=== PATIENT | female | born 1990 | race Caucasian/White ===

== ENCOUNTER 2017-02-22 20:44 | Emergency (ER) | payer BC ==
--- NOTE | 2017-02-22 21:44 | PD ---
HPI Chief Complaint Cramping Date Seen: Feb 22, 2017 Time Seen: 21:30 Travel History International Travel<30 Days: No Contact w/Intl Traveler<30Days: No Known Affected Area: No History of Present Illness HPI 27-year-old 1 para 0 at 31 6/7 weeks gestation who has been having cramping since about 5:30 PM. She states the cramping is now diminished. No leakage of fluid or bleeding. She reports good movement History Past Medical History Medical History: Denies Significant Hx Obstetric History Obstetric History Primigravida under the care of Dr. Thomson, uncomplicated thus far Family History Family History: Negative Social History Alcohol Use: No Tobacco Use: No Substance Abuse: No Review of Systems Except as stated in HPI: all other systems reviewed are Neg Physical Exam Narrative GENERAL: Well-nourished, well-developed patient. SKIN: Warm and dry. HEAD: Normocephalic and atraumatic. EYES: No scleral icterus. No injection or drainage. ENT: No nasal drainage noted. Mucous membranes pink. Airway patent. NECK: Supple, trachea midline. No JVD. CARDIOVASCULAR: Regular rate and rhythm without murmurs, gallops, or rubs. RESPIRATORY: Breath sounds equal bilaterally. No accessory muscle use. ABDOMEN/GI: Abdomen soft, non-tender, bowel sounds present, no rebound, no guarding Gravid to [-] weeks size Fundal Height: [-] GENITOURINARY: External Genitalia: intact and normal in appearance BUS glands: [-] Cervix: [-] Dilatation: [Closed-] Effacement: [50] Station: [-3-] Presentation: [-] Membranes: [intact ] Uterine Contractions: [-Irritable] FHT's: Category: [-1] Baseline: [-] Reactive: [Yes-] Variability: [-] Decels: [-] EXTREMITIES: No cyanosis or edema. BACK: Nontender without obvious deformity. No CVA tenderness. NEUROLOGICAL: Awake and alert. Motor and sensory grossly within normal limits. Five out of 5 muscle strength in all muscle groups. Normal speech. MDM Medical Record Reviewed: Yes Narrative Course / MDM Assessment: 31 6/7 week gestation with uterine irritability now resolved spontaneously Plan: Labor precautions were reviewed with the patient. She was encouraged to attend her follow-up OB appointment on Wednesday. She will return if things worsen. Diagnosis Diagnosis: Primary Impression: 31 weeks gestation of Additional Impression: Michael Stubbs' contraction Disposition: 01 DISCHARGE HOME Condition: Good Von Domínguez MD Feb 22, 2017 21:44
== END 2017-02-23 03:25 | disposition home or self-care (01) ==
LOC: HOBED 20:44
DX: O47.03 False labor before 37 completed weeks of gestation, third trimester (principal); Z3A.31 31 weeks gestation of pregnancy
CPT/HCPCS: 82731; 99284

== ENCOUNTER 2017-04-22 16:01 | Emergency (ER) | payer BC ==
--- NOTE | 2017-04-22 16:26 | PD ---
HPI Chief Complaint ctx Date Seen: Apr 22, 2017 Time Seen: 16:22 Travel History International Travel<30 Days: No Contact w/Intl Traveler<30Days: No Known Affected Area: No History of Present Illness HPI Pt is a 27y/o G1 @ 40.2wks. She has PNC with Dr. Thomson. She reports that she saw him today in clinic and she was 1cm and he stripped her membranes. She took a walk and started spotting/cramping so she presented for evaluation. She denies LOF but reports her mucus plug came out. +FM. Weeks Gestation: 40 Para: 0 : 1 History Past Medical History Medical History: Denies Significant Hx Obstetric History Obstetric History 1. current Past Surgical History Narrative Surgical wisdom teeth extraction Family History Family History: Negative Social History Alcohol Use: No Tobacco Use: No Substance Abuse: No Review of Systems Except as stated in HPI: all other systems reviewed are Neg Physical Exam Narrative General: well developed, well nourished, no acute distress HEENT: normocephalic atraumatic, extraocular movements intact, neck supple Abdomen: soft, gravid, nontender, nondistended Uterus: fundus term Extremities: full range of motion Skin: normal coloration, no rashes, no suspicious skin lesions noted Neurologic: cranial nerves 2-12 grossly intact, normal muscle tone, normal gait Psychiatric: normal mood and affect, appropriate FHTs: 135, +accels, no decels, moderate variability, reactive [place]: irritable Cvx: 1/60/-3 Data Data Vital Signs Reviewed: Yes Orders Orders Vital Signs (Adult) .ON ADMISSION (04/22/17 16:20) ^ Labor Status (04/22/17 16:20) ^ Non Stress Test (04/22/17 16:20) Ed Discharge Order (04/22/17 16:21) MDM Plan Pt is a 27y/o G1 @ 40.2wks with cramping/spotting. -- membranes stripped today in clinic -- cvx unchanged, bloody show present -- FHTs cat 1 Dispo: stable for d/c home with precautions Diagnosis Diagnosis: Primary Impression: 40 weeks gestation of Additional Impressions: Post-dates Cramping affecting , antepartum Vi Ferraro MD Apr 22, 2017 16:26
[2017-04-22 16:30] VITALS: RESP 18
[2017-04-23] MEDS ORDERED: PRENTAB7 (09:03)
[2017-04-23] MEDS ORDERED: ACYC200C66 PO (09:03)
== END 2017-04-22 16:42 | disposition home or self-care (01) ==
LOC: HOBED 16:01
DX: O26.893 Other specified pregnancy related conditions, third trimester (principal); R10.9 Unspecified abdominal pain; O48.0 Post-term pregnancy; Z3A.40 40 weeks gestation of pregnancy
CPT/HCPCS: 59025

== ENCOUNTER 2017-04-23 02:51 | Emergency (ER) | payer BC, MEDICAID ==
--- NOTE | 2017-04-23 03:36 | PD ---
HPI Chief Complaint ctx Date Seen: Apr 23, 2017 Time Seen: 03:32 Travel History International Travel<30 Days: No Contact w/Intl Traveler<30Days: No Known Affected Area: No History of Present Illness HPI Pt is a 27y/o G1 @ 40.3wks. She has PNC with Dr. Thomson. She was seen yesterday in triage for spotting and ctx following membrane stripping in the office. She returns with worsening ctx since 11pm. No LOF. +FM. Weeks Gestation: 40 Para: 0 : 1 Last Menstrual Period: Apr 23, 2017 History Past Medical History Medical History: Denies Significant Hx Obstetric History Obstetric History 1. current Past Surgical History Narrative Surgical wisdom teeth extraction Family History Family History: Negative Social History Alcohol Use: No Tobacco Use: No Substance Abuse: No Allergies-Medications (Allergen,Severity, Reaction): Coded Allergies: No Known Allergies (Unverified , 04/22/17) Review of Systems Except as stated in HPI: all other systems reviewed are Neg Physical Exam Narrative General: well developed, well nourished, no acute distress HEENT: normocephalic atraumatic, extraocular movements intact, neck supple Abdomen: soft, gravid, nontender, nondistended Uterus: fundus term Extremities: full range of motion Skin: normal coloration, no rashes, no suspicious skin lesions noted Neurologic: cranial nerves 2-12 grossly intact, normal muscle tone, normal gait Psychiatric: normal mood and affect, appropriate FHTs: 135, +accels, no decels, moderate variability, reactive [place]: irregular ctx and irritability Cvx: 1/80/-2 (unchanged) Data Data Vital Signs Reviewed: Yes Orders Orders Vital Signs (Adult) .ON ADMISSION (04/23/17 03:29) ^ Labor Status (04/23/17 03:29) ^ Non Stress Test (04/23/17 03:29) Group B Strep: Positive MDM Plan 27y/o G1 @ 40.3wks with ctx -- cvx 1/80/-2 (unchanged from office and triage visit yesterday) -- FHTs cat 1 -- recheck in 1hr -- GBS positive Dispo: cvx unchanged after 1hr; d/c home with precautions Diagnosis Diagnosis: Primary Impression: 40 weeks gestation of Additional Impressions: Uterine contractions during GBS (group B Streptococcus carrier), +RV culture, currently Vi Ferraro MD Apr 23, 2017 03:36
[2017-04-23 04:45] VITALS: RESP 20
[2017-04-23] MEDS ORDERED: PRENTAB7 (09:03)
[2017-04-23] MEDS ORDERED: ACYC200C66 PO (09:03)
== END 2017-04-23 05:59 | disposition home or self-care (01) ==
LOC: HOBED 03:05
DX: O26.893 Other specified pregnancy related conditions, third trimester (principal); N85.8 Other specified noninflammatory disorders of uterus; Z22.330 Carrier of Group B streptococcus; Z3A.40 40 weeks gestation of pregnancy
CPT/HCPCS: 59025

== ENCOUNTER 2017-04-23 08:37 | Inpatient (IN) | payer BC, MEDICAID ==
[~2017-04-23] VITALS: Ht 175.3 cm; Wt 83.9 kg
[2017-04-23] VITALS (60 sets, daily range): BP systolic 90–150; BP diastolic 45–135; PULSE 71–141; RESP 16–20; TEMP 98.9–100
[2017-04-23] MEDS ORDERED: PRENTAB7 (09:03)
[2017-04-23] MEDS ORDERED: ACYC200C66 PO (09:03)
--- NOTE | 2017-04-23 09:13 | PD ---
HPI Chief Complaint contractions Date Seen: Apr 23, 2017 Time Seen: 09:08 Travel History International Travel<30 Days: No Contact w/Intl Traveler<30Days: No History of Present Illness HPI Patient is a 27 year old at 40 and 3/7 weeks gestation who presents to the OB ED with contractions. She presented 04/21, 04/22, and this morning for similar symptoms, not in labor at those time. She denies leakage of fluid, vaginal bleeding. She feels baby moving regularly. She denies WYNN/N/V/D/fever/ sick contacts/SOB/calf pain/dizziness/seeing spots. OB care is with Dr. Thomson. 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 Denies medical problems, PSH wisdom teeth extraction. Denies alcohol, tobacco, illicit drug use. Took Tylenol, Benadryl this morning around 530am, didn't help. Allergies-Medications (Allergen,Severity, Reaction): Coded Allergies: No Known Allergies (Unverified , 04/22/17) Home Meds Reported Medications Pnv No.95/Ferrous Fum/Folic AC ( Vitamins Tablet) 28 Mg Iron-800 Mcg Tablet 04/23/17 Acyclovir (Acyclovir) 200 Mg Cap, 200 MG PO 5 TIMES A DAY for Mgmt Viral Infection, CAP 0 Refills 04/23/17 Review of Systems Except as stated in HPI: all other systems reviewed are Neg Physical Exam Narrative GENERAL: Well-nourished, well-developed patient. SKIN: Warm and dry. No rashes. HEAD: Normocephalic and atraumatic. EYES: No scleral icterus. No injection or drainage. ENT: No nasal drainage noted. Mucous membranes pink. Airway patent. NECK: Supple, trachea midline. No JVD. CARDIOVASCULAR: Regular rate and rhythm without murmurs, gallops, or rubs. RESPIRATORY: Breath sounds equal bilaterally. No accessory muscle use. ABDOMEN/GI: Abdomen soft, non-tender, bowel sounds present, no rebound, no guarding. Gravid. GENITOURINARY: External Genitalia: intact and normal in appearance Cervix: 2/75/-3 Presentation: Vertex Membranes: intact Uterine Contractions: q 4 min FHT's: Category: 1 Baseline: 140s Reactive: 160s Variability: mod Decels: absent EXTREMITIES: No cyanosis or edema. BACK: Nontender without obvious deformity. No CVA tenderness. NEUROLOGICAL: Awake and alert. Motor and sensory grossly within normal limits. Five out of 5 muscle strength in all muscle groups. Normal speech. Data Data Vital Signs Reviewed: Yes (BP wnl 130s/60s) Orders Orders Vital Signs (Adult) .ON ADMISSION (04/23/17 08:45) ^ Labor Status (04/23/17 08:45) ^ Non Stress Test (04/23/17 08:45) MDM Medical Record Reviewed: Yes Plan 27 year old at 40 and 3/7 weeks gestation who presents to the OB ED with contractions. OB care with Dr. Thomson. Cervix 2/75/-3 on exam. CTX q4min. Intrauterine : Category 1 tracing CTX moderate to palpation q4min, painful Expect vaginal delivery Intact membranes Monitor heart tones Routine care Monitor CTX, recheck cervix to assess if in labor Consult with Dr. Thomson for further management planning GBS positive: Start IV penicillin per protocol once in labor DW Dr. Ferraro WDW Dr. Thomson Disposition: 01 DISCHARGE HOME Patient Instructions: Having Your Baby: The Labor Process (GEN) Juliana Jarquin MD R2 Apr 23, 2017 09:13
[2017-04-23] MEDS ORDERED: LACTATED RINGER'S 1000 ML INJ 1,000 ML IV PRN (11:07)
--- NOTE | 2017-04-23 11:12 | HHI.HP ---
HPI Chief Complaint Contractions Date Seen: Apr 23, 2017 Time Seen: 11:10 Travel History International Travel<30 Days: No Contact w/Intl Traveler<30Days: No History of Present Illness HPI Patient is a 27 year old at 40 and 3/7 weeks gestation who presents to the OB ED with contractions. She presented 04/21, 04/22, and this morning for similar symptoms, not in labor at those time. She denies leakage of fluid, vaginal bleeding. She feels baby moving regularly. She denies [place]/N/V/D/fever/ sick contacts/SOB/calf pain/dizziness/seeing spots. OB care is with Dr. Thomson. 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 Denies medical problems, PSH wisdom teeth extraction. Denies alcohol, tobacco, illicit drug use. Took Tylenol, Benadryl this morning around 530am, didn't help. Allergies-Medications (Allergen,Severity, Reaction): Coded Allergies: No Known Allergies (Unverified , 04/22/17) Home Meds Reported Medications Pnv No.95/Ferrous Fum/Folic AC ( Vitamins Tablet) 28 Mg Iron-800 Mcg Tablet 04/23/17 Acyclovir (Acyclovir) 200 Mg Cap, 200 MG PO 5 TIMES A DAY for Mgmt Viral Infection, CAP 0 Refills 04/23/17 Physical Exam Vital Signs Date Time Temp Pulse Resp B/P (MAP) Pulse Ox O2 Delivery O2 Flow Rate FiO2 04/23/17 08:52 83 134/68 (90) Narrative GENERAL: Well-nourished, well-developed patient. SKIN: Warm and dry. No rashes. HEAD: Normocephalic and atraumatic. EYES: No scleral icterus. No injection or drainage. ENT: No nasal drainage noted. Mucous membranes pink. Airway patent. NECK: Supple, trachea midline. No JVD. CARDIOVASCULAR: Regular rate and rhythm without murmurs, gallops, or rubs. RESPIRATORY: Breath sounds equal bilaterally. No accessory muscle use. ABDOMEN/GI: Abdomen soft, non-tender, bowel sounds present, no rebound, no guarding. Gravid. GENITOURINARY: External Genitalia: intact and normal in appearance Cervix: 3/80/-2 Presentation: Vertex Membranes: intact Uterine Contractions: q 4 min FHT's: Category: 1 Baseline: 140s Reactive: 160s Variability: mod Decels: absent EXTREMITIES: No cyanosis or edema. BACK: Nontender without obvious deformity. No CVA tenderness. NEUROLOGICAL: Awake and alert. Motor and sensory grossly within normal limits. Five out of 5 muscle strength in all muscle groups. Normal speech. Caprini VTE Risk Assessment Caprini VTE Risk Assessment: No/Low Risk (score <= 1) Caprini Risk Assessment Model Point Value = 1 Point Value = 2 Point Value = 3 Point Value = 5 Age 41-60 Minor surgery BMI > 25 kg/m2 Swollen legs Varicose veins or History of unexplained or recurrent spontaneous Oral contraceptives or hormone replacement Sepsis (< 1 month) Serious lung disease, including pneumonia (< 1 month) Abnormal pulmonary function Acute myocardial infarction Congestive heart failure (< 1 month) History of inflammatory bowel disease Medical patient at bed rest Age 61-74 Arthroscopic surgery Major open surgery (> 45 min) Laparoscopic surgery (> 45 min) Malignancy Confined to bed (> 72 hours) Immobilizing plaster cast Central venous access Age >= 75 History of VTE Family history of VTE Factor V Leiden Prothrombin [id number] Lupus anticoagulant Anticardiolipin antibodies Elevated serum homocysteine Heparin-induced thrombocytopenia Other congenital or acquired thrombophilia Stroke (< 1 month) Elective arthroplasty Hip, pelvis, or leg fracture Acute spinal cord injury (< 1 month) Prophylaxis Regimen Total Risk Factor Score Risk Level Prophylaxis Regimen 0-1 Low Early ambulation 2 Moderate Order ONE of the following: *Sequential Compression Device (SCD) *Heparin 5000 units SQ BID 3-4 Higher Order ONE of the following medications: *Heparin 5000 units SQ TID *Enoxaparin/Lovenox 40 mg SQ daily (WT < 150 kg, CrCl > 30 mL/min) *Enoxaparin/Lovenox 30 mg SQ daily (WT < 150 kg, CrCl > 10-29 mL/min) *Enoxaparin/Lovenox 30 mg SQ BID (WT < 150 kg, CrCl > 30 mL/min) AND/OR *Sequential Compression Device (SCD) 5 or more Highest Order ONE of the following medications: *Heparin 5000 units SQ TID (Preferred with Epidurals) *Enoxaparin/Lovenox 40 mg SQ daily (WT < 150 kg, CrCl > 30 mL/min) *Enoxaparin/Lovenox 30 mg SQ daily (WT < 150 kg, CrCl > 10-29 mL/min) *Enoxaparin/Lovenox 30 mg SQ BID (WT < 150 kg, CrCl > 30 mL/min) AND *Sequential Compression Device (SCD) Data Data Vital Signs Reviewed: Yes (wnl) Orders Orders Vital Signs (Adult) .ON ADMISSION (04/23/17 08:45) ^ Labor Status (04/23/17 08:45) ^ Non Stress Test (04/23/17 08:45) Us Ob Bpp Wo Nst (04/23/17 ) Admit To Inpatient (04/23/17 ) Code Status (04/23/17 11:07) Vital Signs (Adult) .Per protocol (04/23/17 11:07) Activity Oob Ad [place] (04/23/17 11:07) Heart (04/23/17 11:07) Amnioinfusion (04/23/17 11:07) Urinary Catheter Management .ONCE (04/23/17 11:07) Diet Npo (04/23/17 Lunch) Lactated Ringer's 1000 Ml Inj (Lr 1000 M (04/23/17 11:07) Lactated Ringer's 1000 Ml Inj (Lr 1000 M (04/23/17 11:07) Sodium Chlorid 0.9% 500 Ml Inj (Ns 500 M (04/23/17 11:15) Sodium Chlor 0.9% 1000 Ml Inj (Ns 1000 M (04/23/17 11:27) Lidocaine 1% Inj (50 Ml) (Xylocaine 1% I (04/23/17 11:15) Citric Acid-Sodium Citrate Liq (Bicitra (04/23/17 11:15) Fentanyl Inj (Fentanyl Inj) (04/23/17 11:15) Fentanyl Inj (Fentanyl Inj) (04/23/17 11:15) Penicillin G Potassium Inj (Pfizerpen-G (04/23/17 11:15) Penicillin G Potassium Inj (Pfizerpen-G (04/23/17 15:15) Complete Blood Count With Diff (04/23/17 11:07) Hold Clot (04/23/17 11:07) Abo/Rh Blood Type (04/23/17 11:07) Urinalysis - C+S If Indicated (04/23/17 11:07) Drug Screen, Random Urine (04/23/17 11:07) Resp Oxygen Non Rebreathe Mask (04/23/17 ) ^ Epidural / Intrathecal Infus (04/23/17 11:07) Oxytocin 30 Units-500ml Premix (Pitocin (04/23/17 11:15) Lidocaine 1% Inj (50 Ml) (Xylocaine 1% I (04/23/17 11:15) Light Mineral Oil (Muri-Lube Oil) (04/23/17 11:15) Inpatient Certification (04/23/17 ) Assessment/Plan Assessment and Plan 27 year old at 40 and 3/7 weeks gestation who presents to the OB ED with contractions. OB care with Dr. Thomson. Cervix 75/-3 on exam 845am, repeat exam /-2. CTX q4min. Will admit for labor. Intrauterine : Category 1 tracing CTX moderate to palpation q4min, painful Expect vaginal delivery Intact membranes Monitor heart tones Routine care Dr. Thomson aware CTX: BPP ordered for postdates: not completed for full 30 min due to painful ctx, but AMOL 7.6, EFW 3354g, BPP 6/8 but breathing not assessed GBS positive: Start IV penicillin per protocol once in labor DW Dr. Ferraro, Dr. Naz Garcia SDW Dr. Thomson who agrees with admission Juliana Jarquin MD R2 Apr 23, 2017 11:12
[2017-04-23] MEDS ORDERED: LIDOCAINE HCL 1% 50 ML VIAL INFIL PRN (11:15)
[2017-04-23] MEDS ORDERED: OXYTOCIN 30 UNITS-500ML PREMIX 500 ML IV ONE (11:15)
[2017-04-23] MEDS ORDERED: SODIUM CHLORID 0.9% 500 ML INJ 500 ML IV PRN (11:15)
[2017-04-23] MEDS ORDERED: PENICILLIN G POTASSIUM INJ 5,000,000 UNITS in SODIUM CHLORIDE 0.9% INJ 100 ML IV ONE (11:15)
[2017-04-23] MEDS ORDERED: MINERAL OIL 10 ML VIAL TOPICAL PRN (11:15)
[2017-04-23] MEDS ORDERED: CITRIC ACID-SODIUM CITRATE LIQ 30 ML UDC PO SCH (11:15)
[2017-04-23] MEDS ORDERED: LIDOCAINE HCL 1% 50 ML VIAL I-DERMAL PRN (11:15)
[2017-04-23] MEDS ORDERED: SODIUM CHLOR 0.9% 1000 ML INJ 1,000 ML IV PRN (11:27)
[2017-04-23] MEDS: LACTATED RINGER'S 1000 ML INJ 1,000 ML IV SCH ×2 (11:42→19:50)
[2017-04-23 11:58] LABS: BACTERIA, URINE OCC /hpf; BLOOD, URINE LARGE (NEG); COMMENT (UR) CULT NOT INDICATED; CULTURE IF INDICATED CULT NOT INDICATED; GLUCOSE,URINE NEG (NEG); KETONE, URINE 40 mg/dL (NEG); MUCUS URINE FEW /lpf (OCC); NITRITE,URINE NEG (NEG); SQUAMOUS EPITHELIAL CELL URINE 3 /hpf (0-5); URINE COLOR YELLOW (YELLW/STRAW)
[2017-04-23 11:59] LABS: AUTOMATED NEUTROPHIL # 22.1 TH/MM3 (1.8-7.7); BASOPHIL % 0.2 % (0.0-2.0); EOSINOPHIL % 0.1 % (0.0-4.0); HEMATOCRIT 37.3 % (35.0-46.0); HEMO FLAGS DIFF FINAL; LYMPH % 3.9 % (9.0-44.0); LYMPHOCYTE # 0.9 TH/MM3 (1.0-4.8); MEAN CELL VOLUME 87.3 FL (80.0-100.0); MEAN CORPUSCULAR HEMOGLOBIN 29.6 PG (27.0-34.0); MEAN CORPUSCULAR HGB CONC 33.9 % (32.0-36.0); MONO % 3.6 % (0.0-8.0); NEUT % 92.2 % (16.0-70.0); PLATELET COUNT 274 TH/MM3 (150-450); RED BLOOD COUNT 4.28 MIL/MM3 (4.00-5.30); RED CELL DISTRIBUTION WIDTH 13.4 % (11.6-17.2); WHITE BLOOD COUNT 23.9 TH/MM3 (4.0-11.0)
[2017-04-23] MEDS ORDERED: fentaNYL 2MCG-BUPIV 0.125% INJ 100 ML ONE (14:51)
[2017-04-23] MEDS ORDERED: ePHEDrine/NS 25 MG/5 ML SYRINGE ONE (16:28)
[2017-04-23] MEDS ORDERED: fentaNYL 2MCG-BUPIV 0.125% 100 ML EPIDURAL SCH (17:45)
[2017-04-23] MEDS ORDERED: DO NOT ADMINISTER ANTICOAGULANTS PRN (17:45)
[2017-04-23] MEDS ORDERED: ePHEDrine/NS 25 MG/5 ML SYRINGE IV PUSH PRN (17:45)
[2017-04-23] MEDS ORDERED: NO SYSTEM NARCOTICS PRN (17:45)
[2017-04-23] MEDS ORDERED: OXYTOCIN 30 UNITS-500ML PREMIX 500 ML IV SCH (19:30)
[2017-04-23] MEDS: PENICILLIN G POTASSIUM INJ 2,500,000 UNITS in SODIUM CHLORIDE 0.9% INJ 100 ML IV SCH ×2 (19:47→20:00)
[2017-04-24] VITALS (11 sets, daily range): BP systolic 87–134; BP diastolic 54–75; PULSE 88–143; RESP 18–20; TEMP 98.5–99.6; O2SAT 96
--- NOTE | 2017-04-24 00:31 | PD.OB.DELI ---
Weeks gestation: 40 Gest age assessed date: Apr 24, 2017 Pt started active labor?: Yes Medical induction of labor?: No Artificial rupture of membrane: Yes Anesthesia: Epidural Episiotomy: None Vaginal Delivery: Normal Presentation: Occiput anterior Nuchal Cord: None Delayed cord clamping (45 sec): Yes Infant: Female Delivery date: Apr 24, 2017 Delivery time: 23:45 One Minute : 9 Five Minute : 9 Weight: 7/11 Placenta: Spontaneous delivery, Intact, 3 vessel cord Laceration: Vaginal laceration Repair: Vicryl interrupted Estimated blood loss: 350 Additional Information Nice delivery of Meera Left vaginal laceration repaired with 3-0 vicryl Also had suspicious mons mole 1.1cm removed and defect repaired with 3-0 proline She did very well. Mole to path with placenta placenta needed to go as mom had 100 temp before delivery and the baby felt warm. Peds notified. Sapna Thomson MD Apr 24, 2017 00:31
[2017-04-24] MEDS ORDERED: WITCH HAZEL 50%/GLYCERIN 12.5% 40 PAD JAR TOPICAL PRN ×2 (00:45→01:00)
[2017-04-24] MEDS ORDERED: BENZOCAINE 20% TOPICAL SPRAY 60 ML CAN TOPICAL PRN ×2 (00:45→01:00)
[2017-04-24] MEDS ORDERED: oxyCODONE/ACETAMINOPHEN 5 MG/325 MG TAB PO PRN ×3 (00:45→01:00)
[2017-04-24] MEDS ORDERED: SODIUM CHLORIDE 0.9% FLUSH 10 ML FLUSH IV FLUSH PRN (00:45)
[2017-04-24] MEDS ORDERED: ALUMINUM/MAGNESIUM/SIMETH 30 ML CUP PO PRN ×2 (00:45→01:00)
[2017-04-24] MEDS ORDERED: IBUPROFEN 800 MG TAB PO PRN (00:45)
[2017-04-24] MEDS ORDERED: OXYTOCIN 30 UNITS-500ML PREMIX 500 ML IV SCH ×2 (00:45→01:00)
[2017-04-24] MEDS ORDERED: OXYTOCIN 30 UNITS-500ML PREMIX 500 ML IV ONE (00:45)
[2017-04-24] MEDS ORDERED: ZOLPIDEM TARTRATE 5 MG TAB PO PRN ×2 (00:45→01:00)
[2017-04-24] MEDS ORDERED: DOCUSATE SODIUM 50 MG/SENNA 8.6 MG TAB PO PRN ×2 (00:45→01:00)
[2017-04-24] MEDS ORDERED: ONDANSETRON ODT 4 MG TAB PO PRN ×2 (00:45→01:00)
[2017-04-24] MEDS ORDERED: ACETAMINOPHEN 325 MG TAB PO PRN ×2 (00:45→01:00)
[2017-04-24] MEDS ORDERED: MEASLES, MUMPS, RUBELLA VACCINE 0.5 ML VIAL SQ ONE ×2 (01:00→16:00)
[2017-04-24] MEDS ORDERED: DIPHTH/TETANUS/ACEL PERTUSSIS (BOOSTER) 0.5 ML VIAL/PFS IM ONE ×2 (01:00→16:00)
[2017-04-24] MEDS ORDERED: oxyCODONE/ACETAMINOPHEN 5 MG/325 MG 2 TABS PO PRN (01:00)
[2017-04-24] MEDS ORDERED: DISCONTINUE ALL PREVIOUS ORDERS ONE (01:00)
[2017-04-24] MEDS ORDERED: ACYCLOVIR 200 MG CAP PO SCH (06:00)
[2017-04-24] MEDS ORDERED: SODIUM CHLORIDE 0.9% FLUSH 10 ML FLUSH IV FLUSH SCH (09:00)
[2017-04-24] MEDS: IBUPROFEN 600 MG TAB PO PRN ×2 (10:00→18:30)
--- NOTE | 2017-04-24 10:26 | HHI.OB ---
Subjective Post Day: 1 Objective Vitals/I&O Vital Signs Date Time Temp Pulse Resp B/P (MAP) Pulse Ox O2 Delivery O2 Flow Rate FiO2 04/24/17 08:00 98.7 103 18 119/67 (84) 04/24/17 02:08 98.7 110 18 111/63 (79) 96 04/24/17 01:15 20 04/24/17 01:13 99.6 04/24/17 01:10 110/54 (72) 04/24/17 01:10 125 04/24/17 01:02 87/69 (75) 04/24/17 01:02 125 04/24/17 01:00 20 04/24/17 00:45 120 04/24/17 00:45 108/71 (83) 04/24/17 00:15 125 04/24/17 00:01 134/75 (94) 04/24/17 00:01 143 04/23/17 23:33 18 04/23/17 23:30 141 126/81 (96) 04/23/17 23:07 18 04/23/17 23:00 129 128/71 (90) 04/23/17 23:00 100.0 04/23/17 22:40 20 04/23/17 22:31 125 115/52 (73) 04/23/17 22:30 99.7 04/23/17 22:08 18 04/23/17 22:00 111 135/74 (94) 04/23/17 21:31 20 04/23/17 21:30 124 110/79 (89) 04/23/17 21:30 98.9 04/23/17 21:17 20 04/23/17 21:00 128 142/78 (99) 04/23/17 21:00 20 04/23/17 20:30 124 119/72 (88) 04/23/17 20:15 18 04/23/17 20:00 123 120/76 (91) 04/23/17 20:00 18 04/23/17 19:47 18 04/23/17 19:30 118/65 (82) 04/23/17 19:30 93 04/23/17 19:30 98.9 04/23/17 19:15 103 04/23/17 19:15 111/61 (78) 04/23/17 19:13 18 04/23/17 19:00 112/67 (82) 04/23/17 18:45 90 110/64 (79) 04/23/17 18:37 20 04/23/17 18:30 106 129/81 (97) 04/23/17 18:15 129 111/71 (84) 04/23/17 18:01 97 108/59 (75) 04/23/17 17:45 103 110/54 (72) 04/23/17 17:30 97 116/55 (75) 04/23/17 17:27 20 04/23/17 17:15 121 127/63 (84) 04/23/17 17:00 82 118/64 (82) 04/23/17 16:45 104 120/71 (87) 04/23/17 16:36 20 04/23/17 16:35 88 108/45 (66) 04/23/17 16:35 104 04/23/17 16:30 87 116/59 (78) 04/23/17 16:30 75 04/23/17 16:26 90/51 (64) 04/23/17 16:26 91 04/23/17 16:25 93 04/23/17 16:20 88 04/23/17 16:20 90 04/23/17 16:20 117/59 (78) 04/23/17 16:15 96 04/23/17 16:15 81 04/23/17 16:15 115/62 (79) 04/23/17 16:10 111 04/23/17 16:10 104 111/69 (83) 04/23/17 16:05 81 04/23/17 16:05 102 138/77 (97) 04/23/17 16:00 90 04/23/17 16:00 90 136/70 (92) 04/23/17 15:55 91 138/67 (90) 04/23/17 15:55 101 04/23/17 15:54 103 132/89 (103) 04/23/17 15:30 91 121/74 (90) 04/23/17 15:22 98 127/72 (90) 04/23/17 15:00 71 150/135 (140) 04/23/17 14:46 91 132/107 (115) 04/23/17 14:31 73 114/59 (77) 04/23/17 14:16 93 120/73 (89) 04/23/17 14:03 83 128/58 (81) 04/23/17 13:26 16 04/23/17 13:00 80 140/88 (105) 04/23/17 13:00 16 04/23/17 12:46 91 148/84 (105) 04/23/17 12:30 87 134/77 (96) 04/23/17 12:15 93 131/80 (97) 04/23/17 12:00 74 120/66 (84) 04/23/17 11:54 81 116/70 (85) 04/23/17 11:37 86 130/84 (99) 04/23/17 10:52 79 115/76 (89) Objective Remarks GENERAL: Well-nourished, well-developed patient. CARDIOVASCULAR: Regular rate and rhythm without murmurs, gallops, or rubs. RESPIRATORY: Breath sounds equal bilaterally. No accessory muscle use. ABDOMEN/GI: Abdomen soft, non-tender. Fundus: Firm, non-tender at umbilicus. GENITOURINARY: Light to moderate bleeding. EXTREMITIES: No cyanosis or edema, non-tender, without signs of DVT. Medications and IVs Current Medications Medications (Trade) Dose Ordered Sig/[place] Route Start Time Stop Time Status Last Admin (Tylenol) 650 mg Q4H PRN PO 04/24/17 01:00 (Motrin) 600 mg Q6H PRN PO 04/24/17 01:00 (Percocet 5-325 Mg) 1 tab Q4H PRN PO 04/24/17 01:00 (Percocet 5-325 Mg) 2 tab Q4H PRN PO 04/24/17 01:00 (Americaine 20% Top Spr) 1 spray Q4H PRN TOPICAL 04/24/17 01:00 (Tucks Pads) 1 applic Q6H PRN TOPICAL 04/24/17 01:00 (Willa-Colace) 2 tab Q12H PRN PO 04/24/17 01:00 (Ambien) 5 mg HS PRN PO 04/24/17 01:00 (Mag-Al Plus Susp Liq) 15 ml Q8H PRN PO 04/24/17 01:00 (Zofran Odt) 4 mg Q6H PRN PO 04/24/17 01:00 Assessment/Plan Problem List: (1) Normal vaginal delivery ICD Codes: O80 - Encounter for full-term uncomplicated delivery Assessment and Plan pt doing well, feeling tired, she delivered just before midnight having some discomfort with standing, she's going to have breakfast and take some motrin and bonding with infant routine care Discharge Planning consider dc in 2 days Ashley Soto Apr 24, 2017 10:26
[2017-04-25] MEDS: IBUPROFEN 600 MG TAB PO PRN (04:04)
[2017-04-25 08:25] VITALS: BP 110/67; PULSE 84; RESP 18; TEMP 97.9
--- NOTE | 2017-04-25 11:46 | HHI.OB ---
Subjective Post Day: 2 Objective Vitals/I&O Vital Signs Date Time Temp Pulse Resp B/P (MAP) Pulse Ox O2 Delivery O2 Flow Rate FiO2 04/25/17 08:25 97.9 04/25/17 08:25 84 18 110/67 (81) 04/24/17 21:27 98.5 88 18 110/66 (81) Objective Remarks GENERAL: Well-nourished, well-developed patient. CARDIOVASCULAR: Regular rate and rhythm without murmurs, gallops, or rubs. RESPIRATORY: Breath sounds equal bilaterally. No accessory muscle use. ABDOMEN/GI: Abdomen soft, non-tender. Fundus: Firm, non-tender at umbilicus. GENITOURINARY: Light to moderate bleeding. EXTREMITIES: No cyanosis or edema, non-tender, without signs of DVT. Medications and IVs Current Medications Medications (Trade) Dose Ordered Sig/[place] Route Start Time Stop Time Status Last Admin (Tylenol) 650 mg Q4H PRN PO 04/24/17 01:00 (Motrin) 600 mg Q6H PRN PO 04/24/17 01:00 04/25/17 04:04 (Percocet 5-325 Mg) 1 tab Q4H PRN PO 04/24/17 01:00 (Percocet 5-325 Mg) 2 tab Q4H PRN PO 04/24/17 01:00 (Americaine 20% Top Spr) 1 spray Q4H PRN TOPICAL 04/24/17 01:00 (Tucks Pads) 1 applic Q6H PRN TOPICAL 04/24/17 01:00 (Willa-Colace) 2 tab Q12H PRN PO 04/24/17 01:00 (Ambien) 5 mg HS PRN PO 04/24/17 01:00 (Mag-Al Plus Susp Liq) 15 ml Q8H PRN PO 04/24/17 01:00 (Zofran Odt) 4 mg Q6H PRN PO 04/24/17 01:00 Assessment/Plan Problem List: (1) Normal vaginal delivery ICD Codes: O80 - Encounter for full-term uncomplicated delivery Assessment and Plan pt doing well pain well managed with oral pain medication routine care Discharge Planning dc home today Ashley Soto Apr 25, 2017 11:46
--- NOTE | 2017-04-25 11:49 | HHI.DS ---
Admission Date Apr 23, 2017 at 11:14 Discharge Date: Apr 25, 2017 Admitting Diagnosis term labor Diagnosis: (1) Normal vaginal delivery ICD Codes: O80 - Encounter for full-term uncomplicated delivery Delivery Date: Apr 24, 2017 Vaginal Delivery: Normal Infant: Female Brief History Patient is a 27 year old at 40 and 3/7 weeks gestation who presents to the OB ED with contractions. She presented 04/21, 04/22, and this morning for similar symptoms, not in labor at those time. She denies leakage of fluid, vaginal bleeding. She feels baby moving regularly. She denies [place]/N/V/D/fever/ sick contacts/SOB/calf pain/dizziness/seeing spots. OB care is with Dr. Thomson. 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 Denies medical problems, PSH wisdom teeth extraction. Denies alcohol, tobacco, illicit drug use. Took Tylenol, Benadryl this morning around 530am, didn't help. Hospital Course term routine care Pt Condition on Discharge: Good Discharge Disposition: Discharge Home Discharge Instructions Diet Instructions: As Tolerated, No Restrictions Additional Diet Instructions: Drink at least 8 - 16 oz bottles of water a day Activities You Can Perform: Shower Only-No Bath, Sitz Bath Activities to Avoid: Lifting/Bending, Sexual Activity Additional Activity Instruc.: No driving until off pain medications Do not lift anything heavier than your baby in an infant carrier Follow up Referrals: [facility] - 2 Weeks @ [facility] Ashley Soto Apr 25, 2017 11:49
== END 2017-04-25 14:05 | disposition home or self-care (01) | DRG 775 ==
LOC: HOBED 08:37 → H2EA 11:14 → UNDOADMIN 11:18 → H1EA 04-24 02:12
PROVIDERS: ADMIT Obstetrics & Gynecology; ATTEND Obstetrics & Gynecology
PROC: 00HU33Z Insertion of Infusion Device into Spinal Canal, Percutaneous Approach (ICD-10-PCS; 2017-04-23)
PROC: 3E0R3BZ Introduction of Anesthetic Agent into Spinal Canal, Percutaneous Approach (ICD-10-PCS; 2017-04-23)
PROC: 10E0XZZ Delivery of Products of Conception, External Approach (ICD-10-PCS; principal; 2017-04-24)
PROC: 0UQG7ZZ Repair Vagina, Via Natural or Artificial Opening (ICD-10-PCS; 2017-04-24)
DX: O48.0 Post-term pregnancy (principal); O71.4 Obstetric high vaginal laceration alone; Z37.0 Single live birth; O99.824 Streptococcus B carrier state complicating childbirth; Z3A.40 40 weeks gestation of pregnancy
CPT/HCPCS: 59025; 76815; 76819; 80307; 81001; 85025; 86900; 86901; 88304; 88307; J2540; J2590; J3010; J7120